=== PATIENT | male | born 1945 | race Caucasian/White ===

== ENCOUNTER 2016-07-02 07:20 | Emergency (ER) | payer MEDICARE, OTHER ==
[2016-07-02 07:05] LABS: BASOPHILS 0.4 %; BASOPHILS ABSOLUTE 0.05 10/3/uL (0.0-0.16); EOSINOPHILS 2.2 %; EOSINOPHILS ABSOLUTE 0.31 10/3/uL (0.0-0.53); HEMATOCRIT 41.9 % (40.0-51.0); HEMOGLOBIN 14.6 g/dL (13.6-17.8); IMMATURE GRANULOCYTES 0.3 %; IMMATURE GRANULOCYTES ABSOLUTE 0.04 10/3/uL (0.0-0.11); LYMPHOCYTES 9.1 %; LYMPHOCYTES ABSOLUTE 1.29 10/3/uL (0.67-4.30); MANUAL DIFF NO %; MEAN CORPUS HGB CONC 34.8 g/dL (32.0-36.0); MEAN CORPUSCULAR HEMOGLOB 32.2 pg (26.0-34.0); MEAN CORPUSCULAR VOLUME 92.3 fL (80-100); MEAN PLATELET VOLUME 10.7 fL (9.2-13.0); MONOCYTES 13.1 %; MONOCYTES ABSOLUTE 1.85 10/3/uL (0.21-1.20); NEUTROPHILS 74.9 %; NEUTROPHILS ABSOLUTE 10.57 10/3/uL (2.02-8.40); PLATELET COUNT 122 10/3/uL (150-400); RBC DISTRIBUTION WIDTH 14.2 % (12.0-16.0); RED CELL COUNT 4.54 10/6/uL (4.7-6.1); WHITE BLOOD CELLS 14.1 10/3/uL (4.5-10.5)
[2016-07-02 07:11] LABS: INTERNATIONAL NORMAL RATI 1.3 UNITS (-); PARTIAL THROMBO TIME 31.6 SEC (22.5-37.2); PROTIME (NOT ORD) 15.8 SEC (12.0-14.5)
[~2016-07-02 07:20] MED LIST: AMPI500 PO; ASA5GR PO; ASAB PO; ASABAYER PO; ASCRIPTIN PO; B12100T PO; BACDS PO; BACLOFEN; CALCIUM PO; CALGLUCTAB PO; CALTRA600D PO; DEPO-TESTOS200 MG/M1 IM; DIL2TAB PO; DILAUDID PUMP; DITRO5 PO; EFFIENT10 PO; ELIQUIS 5 MG TAB5 MG PO; FISH OIL1200 MG PO; FISH-EPA1000 MG PO; FLUOROURACIL 5% EX; GGEXPUD PO; INSPRA25 PO; KDUR20 PO; L40 PO; LIPITOR10 PO; LIPITOR20 PO; LIPOTRIAD1 CAP PO; LOP100 PO; LOP25 PO; LOP50 PO; MAGOX4 PO; METAMUCIL CAN7 OZ PO; METANX PO; METPAKSF PO; NEUR100 PO; NUPLAZID 17 MG PO; OCUVITE PO; OS500+D PO; PRILO PO; PRILOSEC OTC20 MG PO; PRIN20 PO; PROMEGA PO; RAN500 PO; ROBITUSSIN PO; SILTUSSIN100 MG/5 M PO; TESTOSTERONE IM; VITAMIN D1000 UNI1 PO; VITAMIN D31000 UNIT PO; VITC500 PO; Z100 PO; ZESTRIL20 MG PO; ZOL100 PO; [UNRECOGNIZED DRUG - CODE] IV; [UNRECOGNIZED DRUG - OTHER]; [UNRECOGNIZED DRUG - OTHER] PO
[2016-07-02 07:25] LABS: A/G RATIO 0.9 (0.7-1.9); ALBUMIN 3.6 G/DL (3.5-5.0); ALKALINE PHOSPHATASE 127 U/L (45-117); BUN (BLOOD UREA NITROGEN) 8 MG/DL (6-23); CALCIUM, SERUM 8.7 MG/DL (8.5-10.4); CHLORIDE, SERUM 101 MMOL/L (96-112); CO2 (CARBON DIOXIDE) 26 MMOL/L (24-34); CREATININE 0.76 MG/DL (0.70-1.30); GFR AFRICAN AMERICAN 106 ML/MIN (>=60); GFR NON AFRICAN AMERICAN 91 ML/MIN (>=60); GLOBULIN 3.8 G/DL (2.5-4.1); GLUCOSE, SERUM 100 MG/DL (60-99); POTASSIUM, SERUM 4.2 MMOL/L (3.5-5.3); SGOT(AST) 36 U/L (5-40); SGPT(ALT) 37 U/L (5-65); SODIUM, SERUM 139 MMOL/L (135-148); TOTAL BILIRUBIN 1.3 MG/DL (0-1.2); TOTAL PROTEIN 7.4 G/DL (6.0-8.5); TROPONIN I <0.02 NG/ML (<0.05)
[2016-07-02 07:26] LABS: LACTATE 1.5 MMOL/L (0.3-2.4)
[2016-07-02 08:39] LABS: ASCORBIC ACID (UR NOT ORDER) NEG (NEG); BILIRUBIN, URINE NEGATIVE (NEG); ER URINALYSIS TAT 0 Hrs 09 Mins; KETONE, URINE NEGATIVE (NEG); LEUKOCYTE ESTERASE(NOT OR NEG (NEG); NITRITE (URINE) NEG (NEG); WBC (NOT ORDERED) (RFLEX) 1 (0-5)
[2016-09-02] MEDS ORDERED: NUPLAZID PO (13:34)
[2016-09-02] MEDS ORDERED: ASA5GR PO (13:38)
[2016-09-02] MEDS ORDERED: FOLIC PO (13:40)
[2016-12-17] MEDS ORDERED: IMOD PO (10:35)
[2016-12-17] MEDS ORDERED: ELIQUIS 5 MG TAB5 MG PO (10:35)
[2016-12-17] MEDS ORDERED: DEPAKUDL PO (10:36)
[2016-12-17] MEDS ORDERED: FOLIC PO (10:36)
[2016-12-17] MEDS ORDERED: L20 PO (10:37)
[2016-12-17] MEDS ORDERED: NUPLAZID 17 MG PO (10:37)
[2016-12-17] MEDS ORDERED: DIL2TAB PO (10:37)
[2016-12-17] MEDS ORDERED: MIRALAX POWDER1 PKT PO (10:37)
[2016-12-17] MEDS ORDERED: KLOR-CON 1010 MEQ PO (10:38)
[2016-12-17] MEDS ORDERED: LOP25 PO (10:38)
[2016-12-17] MEDS ORDERED: METAMUCIL CAN7 OZ PO (10:38)
[2016-12-17] MEDS ORDERED: PRIN5 PO (10:38)
[2016-12-17] MEDS ORDERED: Z100 PO (10:38)
[2016-12-17] MEDS ORDERED: PRILOSEC OTC20 MG PO (10:39)
[2016-12-17] MEDS ORDERED: MULTIVIT/MIN PO (10:39)
[2016-12-17] MEDS ORDERED: ASA5GR PO (10:39)
[2016-12-17] MEDS ORDERED: FENESIN IR400 MG PO (10:39)
[2016-12-17] MEDS ORDERED: ZOL100 PO (10:39)
[2016-12-17] MEDS ORDERED: DILAUDID PAIN PUMP (10:44)
== END 2016-07-02 10:43 | disposition home or self-care (01) ==
LOC: ER 07:20
PROVIDERS: Specialist
DX: K57.32 Diverticulitis of large intestine without perforation or abscess without bleeding (principal); R07.9 Chest pain, unspecified; D72.829 Elevated white blood cell count, unspecified; I10 Essential (primary) hypertension; G20 Parkinson's disease; Z95.5 Presence of coronary angioplasty implant and graft; Z85.828 Personal history of other malignant neoplasm of skin; Z88.1 Allergy status to other antibiotic agents; Z88.5 Allergy status to narcotic agent; Z88.8 Allergy status to other drugs, medicaments and biological substances; Z79.82 Long term (current) use of aspirin; Z79.899 Other long term (current) drug therapy
CPT/HCPCS: 71010; 74176; 80053; 81001; 82962; 83605; 83690; 84484; 85025; 85610; 85730; 93005; 96374; 99285; A9270-GY; J1170; J2405

== ENCOUNTER 2016-07-19 22:43 | Inpatient (IN) | payer MEDICARE, OTHER ==
--- NOTE | ~2016-07-19 | DS ---
Discharge Summary [facility] [address] [place]. [address] NAME: ARNOLDO BUSH : 41 STATUS : DIS IN PAT#: [id number] AGE: 70 ADM/REG DATE : 07/20/16 MR#: [id number] REPORT SERV DATE: 07/28/16 DICTATED BY: VINNY PIMENTEL DATE: 07/25/16 REPORT STATUS : Draft TRANSCRIBED BY: MODL DATE: 07/25/16 ADMISSION DATE: 07/20/2016 DISCHARGE DATE: 07/25/2016 REASON FOR ADMISSION: Recurrent diverticulitis. HISTORY OF PRESENT ILLNESS: Please refer to Dr. Caden Hernandez's history and physical dated 07/20/2016 for complete details regarding the patient's admission. The patient was admitted to the Hospitalist Service for recurrent diverticulitis. HOSPITAL COURSE: The patient had completed an approximately 10-day course of Augmentin and Flagyl prior to admission, presented with left-sided abdominal pain. CT scan of his abdomen and pelvis without contrast in the ER showed persistent acute diverticulitis involving the proximal sigmoid colon and left upper pelvis when compared to July 02, 2016; no associated abscess; 6 cm long segment of diffusely thickened sigmoid colon. The patient was started on IV Zosyn. He has completed approximately 6 days of IV Zosyn. He has reached the point where he has been tolerating a bland diet for several days. His abdominal pain has markedly improved. The patient had a lot of anxiety and concerns regarding development of an abscess. GI medicine had been following along throughout the hospitalization. We repeated a CT scan of his abdomen and pelvis with IV and oral contrast 2 days later which showed inflammatory changes focally in the descending colon consistent with diverticulitis, but the images have improved over the past several days. There was no abscess or perforation. Even after this CAT scan, the patient continued to complain of worsening abdominal pain. Although he did not have any physical evidence of worsening pain, every time during my physical exam, his abdominal tenderness would be less severe, and he was also tolerating a diet, and he did not appear to be in any pain whatsoever. On , I had offered to send him home or to monitor for one more day with IV antibiotics. The and the patient did not know what to do, so I just decided for them to monitor him for an extra day in the hospital with IV Zosyn, and on the day of discharge, the patient states that he was feeling better. His had some concerns about him going home; however, I had no reason to continue to keep him in the hospital as he has been afebrile without any leukocytosis. He was tolerating a bland diet with no nausea and no vomiting, and after I spent 30 minutes on the day of discharge, I went back into the room, the patient was sound asleep in a chair. Again, in the past 5 to 6 days, he has not exhibited any signs of abdominal pain, leading to the point of continuing IV antibiotics. The patient does have a lot of anxiety which then gets worse as his does not know how to handle his anxiety at times. His was requesting me to start him on anxiety medications. He is already taking Zoloft which has been supervised under Dr. Guillaume, and I expressed concern starting him on a different anti- anxiety medication. He carries a questionable allergy to Levaquin. We had discussed switching him over to Levaquin and Flagyl from Zosyn to see if he would be able to tolerate that; however, pharmacy had called saying that there was a significant interaction with Levaquin and of his Parkinson's medications, and therefore, we decided to keep the patient on Zosyn. The patient does have a history of having some allergic issues, and so I did not want to risk anything. The patient has certainly reached maximal hospitalization. GI Medicine had signed off 2 to 3 days ago, recommended doing an outpatient colonoscopy in 6 weeks. We have arranged home health to help monitor his situation and to provide some Discharge Summary [address] [address] NAME: ARNOLDO BUSH : 41 STATUS : DIS IN PAT#: [id number] AGE: 70 ADM/REG DATE : 07/20/16 MR#: [id number] REPORT SERV DATE: 07/28/16 DICTATED BY: VINNY PIMENTEL DATE: 07/25/16 REPORT STATUS : Draft TRANSCRIBED BY: MODKelsey DATE: 07/25/16 relief to his anxiety. The patient has reached maximal hospitalization and will be discharged today in a stable condition. DISCHARGE DIAGNOSES: 1. Acute diverticulitis. 2. Worsening progressive Parkinson disease. 3. History of a pulmonary embolus/deep vein thrombosis, on Eliquis. 4. Chronic systolic heart failure that is compensated. 5. Chronic pain, dependent on intrathecal Dilaudid pump along with oral Dilaudid for breakthrough. 6. Hypertension. 7. History of thoracic aneurysm. 8. Obstructive sleep apnea, not on CPAP. 9. Multivessel coronary artery disease. 10.History of partial colectomy secondary to diverticulitis. PROCEDURES: 1. CT scan of the abdomen and pelvis without contrast. 2. CT scan of the abdomen and pelvis with IV and oral contrast. CONSULTATION: GI Medicine. DISCHARGE MEDICATIONS: Allopurinol 100 mg every evening; Eliquis 5 mg twice a day; aspirin 325 mg every morning; Metamucil daily; Zoloft 100 mg at bedtime; lisinopril 2.5 mg at bedtime; Robitussin p.r.n.; Dilaudid 2 mg every 4 hours p.r.n. breakthrough pain; intrathecal Dilaudid pump; Lopressor 25 mg twice a day; Prilosec 20 mg p.r.n.; K-Dur 10 mEq daily; vitamin C daily; Lasix 20 mg p.r.n. swelling; Augmentin 875 mg twice a day for 4 more days. This is Vinny Pimentel, spending over 30 minutes on discharge planning and coordination of care on Mr. Bush, and answering multiple questions and concerns for the patient and his . LUCY/LAUREN Vinny Pimentel MD / [id number] CC: MD Barrie Sanchez M.D. Alexander Stratienko, M.D. David Rankine, M.D. Freddy Hurt MD
--- NOTE | ~2016-07-19 | HP ---
History And Physical [place] [id number] [place]. [address] NAME: ARNOLDO LEONARDO : 41 STATUS : ADM IN [facility]#: [id number] AGE: 70 ADM/REG DATE : 07/20/16 MR#: [id number] REPORT SERV DATE: 07/20/16 DICTATED BY: NOLBERTO GOODMAN DATE: 07/20/16 REPORT STATUS : Draft TRANSCRIBED BY: MODKelsey DATE: 07/20/16 DATE OF ADMISSION: 07/20/2016 CHIEF COMPLAINT: A 70-year-old male presenting with recurrent diverticulitis. HISTORY OF PRESENT ILLNESS: The patient's history was obtained through careful interview with the patient and , coupled with review of [facility] and [facility] medical records. The patient had developed abdominal pain on 07/01/2016, by the next day he had been to the emergency department, had a scan that confirm recurrence of diverticulitis and was placed on outpatient Augmentin and Flagyl. He completed a 10-day course of these medications with improvement in his symptoms. But over last 24 hours the patient has had recurrence of his abdominal pain and a CT scan here that shows persistent recurrent diverticulitis. He describes left lower quadrant abdominal discomfort, an aching quality. He describes a "lump" in his left lower quadrant, a 7 to 8/10 severity. He had some nausea, but no vomiting. No diarrhea. No fevers or chills. No bright red blood per rectum. Good appetite. He has had issues with volume overload recently, he takes p.r.n. Lasix because of this. Today, he felt slightly more short of breath than usual with his abdominal pain. He also has chronic intermittent chest discomfort, but he had a negative catheterization of the heart in March 2015. Negative cardiac stress test in June [address] Torres. The patient recently was started on new cardiac medications including lisinopril daily and metoprolol, but the patient does have a history of a borderline low blood pressure with a previous systolic blood pressure in the 90s, at baseline at times. REVIEW OF SYSTEMS: Otherwise, a 14-point review of systems was obtained and was negative. PAST MEDICAL HISTORY: 1. Parkinson's disease with progressive dementia and disability. 2. Coronary artery disease, status post stent placement in 2010, negative catheterization of the heart in March 2015, and negative cardiac stress test in June [address] Lloyd Torres. 3. DVT and pulmonary embolism. Previously a left subclavian vein occlusion, on chronic Eliquis. 4. Obstructive sleep apnea, but not on CPAP. 5. Elevated cholesterol. 6. Pneumonia. History And Physical [place] [address] [place]. [address] NAME: ARNOLDO LEONARDO : 41 STATUS : ADM IN [facility]#: [id number] AGE: 70 ADM/REG DATE : 07/20/16 MR#: [id number] REPORT SERV DATE: 07/20/16 DICTATED BY: NOLBERTO GOODMAN DATE: 07/20/16 REPORT STATUS : Draft TRANSCRIBED BY: LAUREN DATE: 07/20/16 7. Hypertension. 8. Diverticulitis with a previous partial colectomy. 9. Gastroesophageal reflux disorder. 10.Chronic back pain with chronic pain management and a history of a pain pump. 11.Depression. 12.Chronic thoracic aortic aneurysm 3.8 to 4 cm, under observation. 13.Detached retina with optic nerve atrophy. 14.Peptic ulcer disease. 15.History of WPW. 16.Benign prostatic hypertrophy. 17.Nephrolithiasis. 18.Granulomatous lung disease. 19.Gout. 20.TMJ. 21.Systolic congestive heart failure, reported ejection fraction of 40% recently. PAST SURGICAL HISTORY: 1. Pain pump placement in his right abdominal wall. 2. Cervical spine surgery. 3. Partial colectomy for diverticulitis. 4. Bilateral rotator cuff repair. 5. Skin cancer removal. 6. Lipoma removal. 7. Appendectomy. 8. Carpal tunnel release. ALLERGIES: TO CEPHALOSPORINS, LEVAQUIN, MORPHINE, NEURONTIN, LIPITOR, AND NEUPRO. SOCIAL HISTORY: He has never been a smoker. Does not drink alcohol. He and his , both have been 55 years in September. He is a retired SPEECH PATHOLOGIST. They live in [place], [place]. He has two children. One of his children lives in [place] and all of their four grandchildren and five great grandchildren all live in [place]. FAMILY HISTORY: Diabetes. Mother and father with heart disease. Mother with Alzheimer's dementia. CURRENT MEDICATIONS: 1. Nuplazid, this is some kind of Parkinson's medication that he takes daily. 2. Eliquis 5 mg p.o. b.i.d. 3. Metoprolol 25 mg p.o. b.i.d. 4. Aspirin 325 mg daily. 5. Calcium. 6. Lasix 20 mg as needed. 7. Vitamin C. 8. Folic acid. 9. Allopurinol 100 mg p.o. daily. 10.Zoloft 50 mg p.o. daily. History And Physical [address] [address] NAME: ARNOLDO LEONARDO : 41 STATUS : ADM IN [facility]#: [id number] AGE: 70 ADM/REG DATE : 07/20/16 MR#: [id number] REPORT SERV DATE: 07/20/16 DICTATED BY: NOLBERTO GOODMAN DATE: 07/20/16 REPORT STATUS : Draft TRANSCRIBED BY: LAUREN DATE: 07/20/16 11.Lisinopril 2.5 mg p.o. daily. 12.Lipitor 20 mg p.o. daily. 13.Hydromorphone pain pump. 14.Metamucil as needed. 15.Guaifenesin as needed. 16.Neurontin 100 mg at bedtime. PHYSICAL EXAMINATION: VITAL SIGNS: Temperature 99.8, pulse 65, blood pressure as low as 97/50, respiratory rate 18, and O2 saturation 95% on room air. GENERAL: A pleasant, cooperative male, in no significant distress at this time. HEENT: Pupils are equal, round, and reactive to light. No conjunctival pallor. No scleral icterus. Nares are patent. Oropharynx is clear of obstruction. Moist mucous membranes. NECK: Trachea midline. No thyromegaly. LYMPH: No cervical lymphadenopathy. No supraclavicular lymphadenopathy. RESPIRATORY: Clear to auscultation at bases. No wheezes, rales, or rhonchi. Normal respiratory effort. CARDIOVASCULAR: Regular rate and rhythm. No murmurs, rubs, or gallops. No extremity edema is appreciated. ABDOMEN: Some significant left lower quadrant abdominal pain with mild guarding, but no rebound. No mass is palpable. A nondistended abdomen with active bowel sounds. No hepatosplenomegaly. DERMATOLOGICAL: Warm and dry extremities. No pallor. No cyanosis. PSYCHIATRIC: A normal affect. A very pleasant mood. The patient is alert and appropriate. He is oriented to location. He has difficulty with orientation to time, and details of his recent history. LABORATORY DATA: White blood cell count 14, hemoglobin 13, hematocrit 39, and platelets 136. Sodium 139, potassium 4.1, chloride 103, bicarb 25, BUN 9, creatinine 0.58, and glucose 116. Urinalysis negative for infection. Lactic acid 1.9. INR 1.4. Procalcitonin negative. STUDIES: 1. CT scan of the abdomen shows acute diverticulitis. 2. EKG by my own evaluation shows sinus rhythm, no major abnormalities. ASSESSMENT AND PLAN: 1. Acute diverticulitis "failed" outpatient Augmentin and Flagyl. The patient does have a cephalosporin and Levaquin allergy. We will place on IV Zosyn. Family has also requested to be established with a GI doctor, so we will consult Dr. Small. The patient has had a history of severe diverticulitis previously requiring partial colectomy. 2. Worsening progressive Parkinson's disease. 3. History of pulmonary embolism and deep venous thrombosis, on Eliquis. Possible Factor V Leiden. History And Physical [address] [address] NAME: ARNOLDO LEONARDO : 41 STATUS : ADM IN [facility]#: [id number] AGE: 70 ADM/REG DATE : 07/20/16 MR#: [id number] REPORT SERV DATE: 07/20/16 DICTATED BY: NOLBERTO GOODMAN DATE: 07/20/16 REPORT STATUS : Draft TRANSCRIBED BY: MODL DATE: 07/20/16 4. Chronic systolic congestive heart failure. Ejection fraction 40%. Holding beta- amilcar and GLORY inhibitor secondary to hypotension. Monitor volume status closely. 5. Hypertension, chronically intermittent low blood pressure. Recently started on lisinopril and beta-amilcar. We will hold these medications and try mild IV fluids and IV albumin. KPL/MODL Nolberto Goodman M.D. / [id number] CC: Mari Link M.D.
--- NOTE | ~2016-07-19 | CN ---
Consultation Report [facility] [address] [place]. [address] NAME: ARNOLDO BUSH : 41 STATUS : ADM IN PAT#: [id number] AGE: 70 ADM/REG DATE : 07/20/16 MR#: [id number] REPORT SERV DATE: 07/20/16 DICTATED BY: NIKHIL PATEL DATE: 07/20/16 REPORT STATUS : Draft TRANSCRIBED BY: MODKelsey DATE: 07/20/16 GI CONSULTATION DATE OF CONSULTATION: 07/20/2016 REFERRING PHYSICIAN: Jade Caraballo M.D. REASON FOR CONSULTATION: Acute diverticulitis. HISTORY OF PRESENT ILLNESS: Mr. Bush is a 70-year-old gentleman, with a history of diverticulosis in the past and about maybe 15 years or so ago for recurrent diverticulitis, had portion of his colon resected, and has since followed up with Dr. Gamez, who probably did the last colonoscopy on him about five years ago. According to the family nothing was found other than residual diverticulosis. For the first time in many years in the month of June this year, he had an episode of lower abdominal pain and discomfort, and had a CT scan done on 07/02/2016, which showed focal acute diverticulitis in the descending colon at the junction with the sigmoid, without perforation or abscess. He was discharged on oral antibiotics and started feeling better. He then had some more pain and went to the emergency room, this time at [facility], where another CT was done and was told that there was no residual diverticulitis (this is according to the ). Last night, the pain got worse and that is why they came in here and another CT was done again without contrast which showed persistent acute diverticulitis pattern involving the proximal sigmoid colon in the left upper pelvis when compared to the in 07/02/2016 CT. No associated abscess. 6 cm long segment of diffusely thickened sigmoid colon. A colonoscopy has been recommended. There are stable postsurgical changes in the area of the sigmoid from prior surgery, [id number] hiatal hernia. LABORATORY DATA: Showed a white count of 9.4, hemoglobin and hematocrit 11.8 and 35.5, with 99,000 platelet count. Chemistry panel is normal except for a CO2 of 23. PAST MEDICAL HISTORY: 1. History of recurrent diverticulitis, in the past has had a resection. 2. 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 Mushtaq Gaspar, and he had developed a clot in his brachial artery, and he has been on Eliquis. 3. History of coronary artery disease with an ejection fraction of 50% on echo. He has had a left heart catheterization, which showed medium [id number]-[id number]-[id number] length vessel without stenosis, normal LVEF at that time, this was in 03/2015. 4. History of Parkinson's with some dementia. 5. History of constipation. HOME MEDICATIONS: Dilaudid, Lopressor, Prilosec, potassium, Metamucil, Zoloft, calcium, Zyloprim, Eliquis, vitamin C, Cecilio aspirin, Lasix, and Robitussin. Consultation Report [address] [place]. [address] NAME: ARNOLDO BUSH : 41 STATUS : ADM IN [facility]#: [id number] AGE: 70 ADM/REG DATE : 07/20/16 MR#: [id number] REPORT SERV DATE: 07/20/16 DICTATED BY: NIKHIL PATEL DATE: 07/20/16 REPORT STATUS : Draft TRANSCRIBED BY: LAUREN DATE: 07/20/16 PAST SURGICAL HISTORY: 1. Colon resection. 2. Appendectomy. 3. Back surgery. REVIEW OF SYSTEMS: CONSTITUTIONAL: General health to be rbwq-xi-zfsk. No fever, chills, weight loss, anorexia, weakness, dizziness, itching, night sweats, or night fevers. HEENT: Vision is diminished. Hearing is diminished. SKIN: History of basal cell cancer. GASTROINTESTINAL: As mentioned above. CARDIOVASCULAR: History of brachial artery clot, on Eliquis, and decreased ejection fraction. PULMONARY: Normal. GENITOURINARY: Some prostate problems for which he has had a TURP. NEUROLOGICAL: Dementia. MUSCULOSKELETAL: Back problems. PHYSICAL EXAMINATION: GENERAL: He is a fully alert and oriented gentleman, in no acute distress. VITAL SIGNS: With stable vital signs. NECK: Supple. LUNGS: Reveal good air entry bilaterally. No rales or rhonchi. CVS: Normal. ABDOMEN: Soft, nondistended, and nontender. No mass, guarding, rigidity, or rebound. Liver and spleen are not palpable. Clinically no ascites. EXTREMITIES: Without edema. LABORATORY DATA: His labs as mentioned. IMPRESSION: 1. Recurrent acute diverticulitis. 2. Multiple other problems as mentioned above. RECOMMENDATIONS: 1. Continue IV antibiotics. The patient is presently on Zosyn. 2. When stable can be discharged AND I will follow up as an outpatient. GARETH/LAUREN Barrie Patel M.D. Consultation Report [address] [place]. [address] NAME: ARNOLDO BUSH : 41 STATUS : ADM IN [facility]#: [id number] AGE: 70 ADM/REG DATE : 07/20/16 MR#: [id number] REPORT SERV DATE: 07/20/16 DICTATED BY: NIKHIL PATEL DATE: 07/20/16 REPORT STATUS : Draft TRANSCRIBED BY: LAUREN DATE: 07/20/16 / [id number] CC: Jade Caraballo M.D.
[2016-07-19 22:46] LABS: WBC (NOT ORDERED) (RFLEX) 0 (0-5)
[2016-07-19 22:53] LABS: ASCORBIC ACID (UR NOT ORDER) NEG (NEG); BILIRUBIN, URINE NEGATIVE (NEG); ER URINALYSIS TAT 0 Hrs 08 Mins; KETONE, URINE NEGATIVE (NEG); LEUKOCYTE ESTERASE(NOT OR NEG (NEG); NITRITE (URINE) NEG (NEG)
[2016-07-19 23:21] LABS: BASOPHILS 0.2 %; BASOPHILS ABSOLUTE 0.03 10/3/uL (0.0-0.16); EOSINOPHILS 1.2 %; EOSINOPHILS ABSOLUTE 0.17 10/3/uL (0.0-0.53); HEMATOCRIT 39.7 % (40.0-51.0); HEMOGLOBIN 13.5 g/dL (13.6-17.8); IMMATURE GRANULOCYTES 0.3 %; IMMATURE GRANULOCYTES ABSOLUTE 0.04 10/3/uL (0.0-0.11); LYMPHOCYTES ABSOLUTE 0.97 10/3/uL (0.67-4.30); MEAN CORPUSCULAR HEMOGLOB 31.8 pg (26.0-34.0); MEAN CORPUSCULAR VOLUME 93.4 fL (80-100); MEAN PLATELET VOLUME 10.3 fL (9.2-13.0); MONOCYTES 15.1 %; NEUTROPHILS 76.2 %; NEUTROPHILS ABSOLUTE 10.57 10/3/uL (2.02-8.40); PLATELET COUNT 136 10/3/uL (150-400); RBC DISTRIBUTION WIDTH 14.2 % (12.0-16.0); RED CELL COUNT 4.25 10/6/uL (4.7-6.1); WHITE BLOOD CELLS 13.9 10/3/uL (4.5-10.5)
[2016-07-19 23:22] LABS: MANUAL DIFF NO %
[2016-07-19 23:29] LABS: INTERNATIONAL NORMAL RATI 1.4 UNITS (-); PROTIME (NOT ORD) 16.7 SEC (12.0-14.5)
[2016-07-19 23:37] LABS: A/G RATIO 0.9 (0.7-1.9); ALBUMIN 3.3 G/DL (3.5-5.0); BUN (BLOOD UREA NITROGEN) 9 MG/DL (6-23); CALCIUM, SERUM 8.4 MG/DL (8.5-10.4); CHLORIDE, SERUM 103 MMOL/L (96-112); CO2 (CARBON DIOXIDE) 25 MMOL/L (24-34); CREATININE 0.58 MG/DL (0.70-1.30); DIRECT BILIRUBIN 0.2 MG/DL (0.0-0.4); GFR AFRICAN AMERICAN 118 ML/MIN (>=60); GFR NON AFRICAN AMERICAN 102 ML/MIN (>=60); GLOBULIN 3.7 G/DL (2.5-4.1); GLUCOSE, SERUM 116 MG/DL (60-99); POTASSIUM, SERUM 4.1 MMOL/L (3.5-5.3); SGOT(AST) 25 U/L (5-40); SGPT(ALT) 30 U/L (5-65); SODIUM, SERUM 139 MMOL/L (135-148)
[2016-07-19 23:38] LABS: ALKALINE PHOSPHATASE 107 U/L (45-117); INDIRECT BILIRUBIN(NOT ORDER) 0.5 MG/DL (0.1-0.9); LACTATE 1.9 MMOL/L (0.3-2.4); TOTAL BILIRUBIN 0.7 MG/DL (0-1.2)
[2016-07-20 00:27] LABS: PROCALCITONIN <0.05 ng/mL (<0.5)
[2016-07-20] MEDS ORDERED: L20 PO (02:08)
[2016-07-20 13:04] LABS: BASOPHILS 0.1 %; BASOPHILS ABSOLUTE 0.01 10/3/uL (0.0-0.16); EOSINOPHILS 1.3 %; EOSINOPHILS ABSOLUTE 0.12 10/3/uL (0.0-0.53); HEMOGLOBIN 11.8 g/dL (13.6-17.8); IMMATURE GRANULOCYTES 0.3 %; IMMATURE GRANULOCYTES ABSOLUTE 0.03 10/3/uL (0.0-0.11); LYMPHOCYTES 12.8 %; MEAN CORPUS HGB CONC 33.2 g/dL (32.0-36.0); MEAN CORPUSCULAR HEMOGLOB 31.9 pg (26.0-34.0); MEAN CORPUSCULAR VOLUME 95.9 fL (80-100); MEAN PLATELET VOLUME 11.5 fL (9.2-13.0); MONOCYTES 9.5 %; MONOCYTES ABSOLUTE 0.89 10/3/uL (0.21-1.20); NEUTROPHILS ABSOLUTE 7.12 10/3/uL (2.02-8.40); PLATELET COUNT 99 10/3/uL (150-400); RBC DISTRIBUTION WIDTH 14.5 % (12.0-16.0); WHITE BLOOD CELLS 9.4 10/3/uL (4.5-10.5)
[2016-07-20 13:10] LABS: HEMATOCRIT 35.5 % (40.0-51.0)
[2016-07-20 13:11] LABS: MANUAL DIFF NO %; PARTIAL THROMBO TIME 26.9 SEC (22.5-37.2)
[2016-07-20 13:12] LABS: INTERNATIONAL NORMAL RATI 1.5 UNITS (-); PROTIME (NOT ORD) 17.9 SEC (12.0-14.5)
[2016-07-20 13:25] LABS: A/G RATIO 1.2 (0.7-1.9); ALBUMIN 3.8 G/DL (3.5-5.0); BUN (BLOOD UREA NITROGEN) 9 MG/DL (6-23); CALCIUM, SERUM 8.6 MG/DL (8.5-10.4); CHLORIDE, SERUM 106 MMOL/L (96-112); CO2 (CARBON DIOXIDE) 23 MMOL/L (24-34); CREATININE 0.66 MG/DL (0.70-1.30); GFR AFRICAN AMERICAN 112 ML/MIN (>=60); GFR NON AFRICAN AMERICAN 97 ML/MIN (>=60); GLOBULIN 3.2 G/DL (2.5-4.1); GLUCOSE, SERUM 113 MG/DL (60-99); POTASSIUM, SERUM 3.9 MMOL/L (3.5-5.3); SGPT(ALT) 24 U/L (5-65); SODIUM, SERUM 141 MMOL/L (135-148); TOTAL BILIRUBIN 1.1 MG/DL (0-1.2); ULTRASENSITIVE TSH 0.901 MCIU/ML (0.358-3.740)
[2016-07-20 13:26] LABS: ALKALINE PHOSPHATASE 84 U/L (45-117); SGOT(AST) 25 U/L (5-40)
[2016-07-21 06:44] LABS: BASOPHILS 0.4 %; BASOPHILS ABSOLUTE 0.03 10/3/uL (0.0-0.16); EOSINOPHILS 4.1 %; HEMATOCRIT 36.2 % (40.0-51.0); IMMATURE GRANULOCYTES 0.3 %; IMMATURE GRANULOCYTES ABSOLUTE 0.02 10/3/uL (0.0-0.11); LYMPHOCYTES 15.5 %; LYMPHOCYTES ABSOLUTE 1.13 10/3/uL (0.67-4.30); MEAN CORPUS HGB CONC 33.1 g/dL (32.0-36.0); MEAN CORPUSCULAR HEMOGLOB 31.7 pg (26.0-34.0); MEAN CORPUSCULAR VOLUME 95.5 fL (80-100); MONOCYTES 14.6 %; MONOCYTES ABSOLUTE 1.07 10/3/uL (0.21-1.20); NEUTROPHILS 65.1 %; NEUTROPHILS ABSOLUTE 4.76 10/3/uL (2.02-8.40); PLATELET COUNT 102 10/3/uL (150-400); RBC DISTRIBUTION WIDTH 14.6 % (12.0-16.0); RED CELL COUNT 3.79 10/6/uL (4.7-6.1); WHITE BLOOD CELLS 7.3 10/3/uL (4.5-10.5)
[2016-07-21 06:47] LABS: MANUAL DIFF NO %
[2016-07-21 07:02] LABS: A/G RATIO 1.2 (0.7-1.9); ALBUMIN 3.6 G/DL (3.5-5.0); ALKALINE PHOSPHATASE 80 U/L (45-117); BUN (BLOOD UREA NITROGEN) 7 MG/DL (6-23); CALCIUM, SERUM 8.7 MG/DL (8.5-10.4); CHLORIDE, SERUM 109 MMOL/L (96-112); CO2 (CARBON DIOXIDE) 26 MMOL/L (24-34); CREATININE 0.64 MG/DL (0.70-1.30); GFR AFRICAN AMERICAN 113 ML/MIN (>=60); GFR NON AFRICAN AMERICAN 98 ML/MIN (>=60); GLOBULIN 2.9 G/DL (2.5-4.1); GLUCOSE, SERUM 90 MG/DL (60-99); POTASSIUM, SERUM 3.8 MMOL/L (3.5-5.3); SGOT(AST) 17 U/L (5-40); SGPT(ALT) 22 U/L (5-65); SODIUM, SERUM 144 MMOL/L (135-148); TOTAL PROTEIN 6.5 G/DL (6.0-8.5)
[2016-07-22 06:22] LABS: BASOPHILS 0.6 %; BASOPHILS ABSOLUTE 0.04 10/3/uL (0.0-0.16); EOSINOPHILS 4.9 %; EOSINOPHILS ABSOLUTE 0.35 10/3/uL (0.0-0.53); HEMATOCRIT 36.6 % (40.0-51.0); HEMOGLOBIN 12.4 g/dL (13.6-17.8); IMMATURE GRANULOCYTES 0.3 %; IMMATURE GRANULOCYTES ABSOLUTE 0.02 10/3/uL (0.0-0.11); LYMPHOCYTES 15.1 %; LYMPHOCYTES ABSOLUTE 1.08 10/3/uL (0.67-4.30); MEAN CORPUS HGB CONC 33.9 g/dL (32.0-36.0); MEAN CORPUSCULAR HEMOGLOB 31.9 pg (26.0-34.0); MEAN CORPUSCULAR VOLUME 94.1 fL (80-100); MEAN PLATELET VOLUME 10.6 fL (9.2-13.0); MONOCYTES 13.7 %; MONOCYTES ABSOLUTE 0.98 10/3/uL (0.21-1.20); NEUTROPHILS 65.4 %; NEUTROPHILS ABSOLUTE 4.66 10/3/uL (2.02-8.40); PLATELET COUNT 113 10/3/uL (150-400); RBC DISTRIBUTION WIDTH 14.2 % (12.0-16.0); RED CELL COUNT 3.89 10/6/uL (4.7-6.1); WHITE BLOOD CELLS 7.1 10/3/uL (4.5-10.5)
[2016-07-22 06:23] LABS: MANUAL DIFF NO %
[2016-07-22 06:34] LABS: BUN (BLOOD UREA NITROGEN) 7 MG/DL (6-23); CALCIUM, SERUM 8.6 MG/DL (8.5-10.4); CHLORIDE, SERUM 107 MMOL/L (96-112); CO2 (CARBON DIOXIDE) 27 MMOL/L (24-34); CREATININE 0.66 MG/DL (0.70-1.30); GFR AFRICAN AMERICAN 112 ML/MIN (>=60); GFR NON AFRICAN AMERICAN 97 ML/MIN (>=60); GLUCOSE, SERUM 90 MG/DL (60-99); POTASSIUM, SERUM 3.8 MMOL/L (3.5-5.3); SODIUM, SERUM 143 MMOL/L (135-148)
[2016-07-22 12:42] LABS: PROCALCITONIN <0.05 ng/mL (<0.5)
[2016-07-23 05:32] LABS: BASOPHILS 0.5 %; BASOPHILS ABSOLUTE 0.03 10/3/uL (0.0-0.16); EOSINOPHILS 6.8 %; HEMOGLOBIN 12.7 g/dL (13.6-17.8); IMMATURE GRANULOCYTES 0.3 %; IMMATURE GRANULOCYTES ABSOLUTE 0.02 10/3/uL (0.0-0.11); LYMPHOCYTES 17.6 %; LYMPHOCYTES ABSOLUTE 1.04 10/3/uL (0.67-4.30); MEAN CORPUS HGB CONC 33.4 g/dL (32.0-36.0); MEAN CORPUSCULAR HEMOGLOB 31.8 pg (26.0-34.0); MEAN PLATELET VOLUME 10.8 fL (9.2-13.0); MONOCYTES 12.7 %; MONOCYTES ABSOLUTE 0.75 10/3/uL (0.21-1.20); NEUTROPHILS 62.1 %; NEUTROPHILS ABSOLUTE 3.68 10/3/uL (2.02-8.40); PLATELET COUNT 138 10/3/uL (150-400); RBC DISTRIBUTION WIDTH 14.2 % (12.0-16.0); WHITE BLOOD CELLS 5.9 10/3/uL (4.5-10.5)
[2016-07-23 05:35] LABS: MANUAL DIFF NO %
[2016-07-23 05:48] LABS: BUN (BLOOD UREA NITROGEN) 7 MG/DL (6-23); CALCIUM, SERUM 8.9 MG/DL (8.5-10.4); CHLORIDE, SERUM 105 MMOL/L (96-112); CO2 (CARBON DIOXIDE) 26 MMOL/L (24-34); CREATININE 0.68 MG/DL (0.70-1.30); GFR AFRICAN AMERICAN 111 ML/MIN (>=60); GFR NON AFRICAN AMERICAN 95 ML/MIN (>=60); GLUCOSE, SERUM 90 MG/DL (60-99); POTASSIUM, SERUM 4.1 MMOL/L (3.5-5.3); SODIUM, SERUM 142 MMOL/L (135-148)
[2016-07-25] MEDS ORDERED: AUG875 PO (10:53)
[2016-07-25] MEDS ORDERED: PRIN5 PO (11:06)
[2016-09-02] MEDS ORDERED: NUPLAZID PO (13:34)
[2016-09-02] MEDS ORDERED: ASA5GR PO (13:38)
[2016-09-02] MEDS ORDERED: FOLIC PO (13:40)
[2016-12-17] MEDS ORDERED: IMOD PO (10:35)
[2016-12-17] MEDS ORDERED: ELIQUIS 5 MG TAB5 MG PO (10:35)
[2016-12-17] MEDS ORDERED: FOLIC PO (10:36)
[2016-12-17] MEDS ORDERED: DEPAKUDL PO (10:36)
[2016-12-17] MEDS ORDERED: L20 PO (10:37)
[2016-12-17] MEDS ORDERED: MIRALAX POWDER1 PKT PO (10:37)
[2016-12-17] MEDS ORDERED: DIL2TAB PO (10:37)
[2016-12-17] MEDS ORDERED: NUPLAZID 17 MG PO (10:37)
[2016-12-17] MEDS ORDERED: METAMUCIL CAN7 OZ PO (10:38)
[2016-12-17] MEDS ORDERED: KLOR-CON 1010 MEQ PO (10:38)
[2016-12-17] MEDS ORDERED: PRIN5 PO (10:38)
[2016-12-17] MEDS ORDERED: LOP25 PO (10:38)
[2016-12-17] MEDS ORDERED: Z100 PO (10:38)
[2016-12-17] MEDS ORDERED: ASA5GR PO (10:39)
[2016-12-17] MEDS ORDERED: ZOL100 PO (10:39)
[2016-12-17] MEDS ORDERED: FENESIN IR400 MG PO (10:39)
[2016-12-17] MEDS ORDERED: PRILOSEC OTC20 MG PO (10:39)
[2016-12-17] MEDS ORDERED: MULTIVIT/MIN PO (10:39)
[2016-12-17] MEDS ORDERED: DILAUDID PAIN PUMP (10:44)
== END 2016-07-25 13:17 | disposition home health service (06) | DRG 392 ==
LOC: ER 22:43 → 5SO 07-20 01:30
PROVIDERS: Hospitalist; Nurse Practitioner; Nurse Practitioner Adult Health; Nurse Practitioner Family
DX: K57.32 Diverticulitis of large intestine without perforation or abscess without bleeding (principal); I95.89 Other hypotension; G20 Parkinson's disease; I11.0 Hypertensive heart disease with heart failure; I50.22 Chronic systolic (congestive) heart failure; F11.20 Opioid dependence, uncomplicated; F02.80 Dementia in other diseases classified elsewhere, unspecified severity, without behavioral disturbance, psychotic disturbance, mood disturbance, and anxiety; I25.10 Atherosclerotic heart disease of native coronary artery without angina pectoris; G47.33 Obstructive sleep apnea (adult) (pediatric); E78.00 Pure hypercholesterolemia, unspecified; K21.9 Gastro-esophageal reflux disease without esophagitis; G89.29 Other chronic pain; F32.9 Major depressive disorder, single episode, unspecified; N40.0 Benign prostatic hyperplasia without lower urinary tract symptoms; I45.6 Pre-excitation syndrome; E66.9 Obesity, unspecified; I71.2 Thoracic aortic aneurysm, without rupture; Z68.31 Body mass index [BMI] 31.0-31.9, adult; Z86.718 Personal history of other venous thrombosis and embolism; Z86.711 Personal history of pulmonary embolism; Z79.899 Other long term (current) drug therapy; Z95.5 Presence of coronary angioplasty implant and graft; Z79.02 Long term (current) use of antithrombotics/antiplatelets; Z88.5 Allergy status to narcotic agent; Z88.1 Allergy status to other antibiotic agents; Z88.8 Allergy status to other drugs, medicaments and biological substances; Z83.3 Family history of diabetes mellitus; Z82.49 Family history of ischemic heart disease and other diseases of the circulatory system; Z79.82 Long term (current) use of aspirin; Z90.49 Acquired absence of other specified parts of digestive tract; Z98.890 Other specified postprocedural states
CPT/HCPCS: 74176; 74177; 80048; 80053; 81001; 82248; 83605; 83690; 83735; 83880; 84145; 84443; 85025; 85610; 85730; 93005; 96374; 96375; 99285; A9270-GY; J0360; J1170; J2405; J2543; P9047; Q9967

== ENCOUNTER 2016-08-04 19:18 | Emergency (ER) | payer MEDICARE, OTHER ==
[~2016-08-04 19:18] MED LIST changes: +AUG875 PO; +L20 PO; +PRIN5 PO
[2016-08-04 20:08] LABS: BASOPHILS 0.5 %; BASOPHILS ABSOLUTE 0.04 10/3/uL (0.0-0.16); EOSINOPHILS 3.4 %; EOSINOPHILS ABSOLUTE 0.26 10/3/uL (0.0-0.53); ER CBC TAT 0 Hrs 05 Mins; HEMATOCRIT 40.8 % (40.0-51.0); HEMOGLOBIN 13.7 g/dL (13.6-17.8); IMMATURE GRANULOCYTES 0.1 %; IMMATURE GRANULOCYTES ABSOLUTE 0.01 10/3/uL (0.0-0.11); LYMPHOCYTES 23.9 %; LYMPHOCYTES ABSOLUTE 1.83 10/3/uL (0.67-4.30); MEAN CORPUS HGB CONC 33.6 g/dL (32.0-36.0); MEAN CORPUSCULAR HEMOGLOB 31.5 pg (26.0-34.0); MEAN CORPUSCULAR VOLUME 93.8 fL (80-100); MEAN PLATELET VOLUME 11.2 fL (9.2-13.0); MONOCYTES 11.5 %; MONOCYTES ABSOLUTE 0.88 10/3/uL (0.21-1.20); NEUTROPHILS 60.6 %; NEUTROPHILS ABSOLUTE 4.63 10/3/uL (2.02-8.40); PLATELET COUNT 131 10/3/uL (150-400); RED CELL COUNT 4.35 10/6/uL (4.7-6.1); WHITE BLOOD CELLS 7.7 10/3/uL (4.5-10.5)
[2016-08-04 20:11] LABS: MANUAL DIFF NO %
[2016-08-04 20:22] LABS: ALBUMIN 3.8 G/DL (3.5-5.0); BUN (BLOOD UREA NITROGEN) 10 MG/DL (6-23); CALCIUM, SERUM 9.3 MG/DL (8.5-10.4); CHLORIDE, SERUM 103 MMOL/L (96-112); CREATININE 0.69 MG/DL (0.70-1.30); GFR AFRICAN AMERICAN 110 ML/MIN (>=60); GFR NON AFRICAN AMERICAN 95 ML/MIN (>=60); GLUCOSE, SERUM 83 MG/DL (60-99); POTASSIUM, SERUM 4.1 MMOL/L (3.5-5.3); SGOT(AST) 30 U/L (5-40); SGPT(ALT) 32 U/L (5-65); SODIUM, SERUM 139 MMOL/L (135-148); TOTAL PROTEIN 7.4 G/DL (6.0-8.5)
[2016-08-04 20:23] LABS: A/G RATIO 1.1 (0.7-1.9); ALKALINE PHOSPHATASE 101 U/L (45-117); CO2 (CARBON DIOXIDE) 32 MMOL/L (24-34); GLOBULIN 3.6 G/DL (2.5-4.1); TOTAL BILIRUBIN 0.4 MG/DL (0-1.2)
[2016-08-04 20:26] LABS: ASCORBIC ACID (UR NOT ORDER) NEG (NEG); BILIRUBIN, URINE NEGATIVE (NEG); ER URINALYSIS TAT 0 Hrs 20 Mins; KETONE, URINE NEGATIVE (NEG); LEUKOCYTE ESTERASE(NOT OR NEG (NEG); NITRITE (URINE) NEG (NEG); WBC (NOT ORDERED) (RFLEX) < 1 (0-5)
[2016-09-02] MEDS ORDERED: NUPLAZID PO (13:34)
[2016-09-02] MEDS ORDERED: ASA5GR PO (13:38)
[2016-09-02] MEDS ORDERED: FOLIC PO (13:40)
[2016-12-17] MEDS ORDERED: ELIQUIS 5 MG TAB5 MG PO (10:35)
[2016-12-17] MEDS ORDERED: IMOD PO (10:35)
[2016-12-17] MEDS ORDERED: FOLIC PO (10:36)
[2016-12-17] MEDS ORDERED: DEPAKUDL PO (10:36)
[2016-12-17] MEDS ORDERED: DIL2TAB PO (10:37)
[2016-12-17] MEDS ORDERED: L20 PO (10:37)
[2016-12-17] MEDS ORDERED: NUPLAZID 17 MG PO (10:37)
[2016-12-17] MEDS ORDERED: MIRALAX POWDER1 PKT PO (10:37)
[2016-12-17] MEDS ORDERED: Z100 PO (10:38)
[2016-12-17] MEDS ORDERED: LOP25 PO (10:38)
[2016-12-17] MEDS ORDERED: PRIN5 PO (10:38)
[2016-12-17] MEDS ORDERED: METAMUCIL CAN7 OZ PO (10:38)
[2016-12-17] MEDS ORDERED: KLOR-CON 1010 MEQ PO (10:38)
[2016-12-17] MEDS ORDERED: PRILOSEC OTC20 MG PO (10:39)
[2016-12-17] MEDS ORDERED: ASA5GR PO (10:39)
[2016-12-17] MEDS ORDERED: ZOL100 PO (10:39)
[2016-12-17] MEDS ORDERED: MULTIVIT/MIN PO (10:39)
[2016-12-17] MEDS ORDERED: FENESIN IR400 MG PO (10:39)
[2016-12-17] MEDS ORDERED: DILAUDID PAIN PUMP (10:44)
== END 2016-08-05 01:07 | disposition home or self-care (01) ==
LOC: ER 19:18
PROVIDERS: Emergency Medicine
DX: R10.9 Unspecified abdominal pain (principal); G20 Parkinson's disease; K57.92 Diverticulitis of intestine, part unspecified, without perforation or abscess without bleeding; Z88.8 Allergy status to other drugs, medicaments and biological substances; Z88.1 Allergy status to other antibiotic agents; Z79.899 Other long term (current) drug therapy; Z79.82 Long term (current) use of aspirin
CPT/HCPCS: 74176; 80053; 81001; 83690; 85025; 99284

== ENCOUNTER 2016-09-04 09:22 | Day surgery (SDC) | payer MEDICARE, OTHER ==
--- NOTE | ~2016-09-04 | EGD ---
EGD REPORT [facility] [address] [place] [address] NAME: CHARLES BUSH : 41 STATUS : REG [facility]#: [id number] AGE: 71 ADM/REG DATE : 09/04/16 MR#: [id number] REPORT SERV DATE: 09/04/16 DICTATED BY: NIKHIL ANGUIANO DATE: 09/04/16 REPORT STATUS : Draft [facility]ANSCRIBED [facility]: [facility] DATE: 09/04/16 Endoscopy Center Patient Name: Charles Bush. Date of : 1945 Attending MD: ANÍBAL ANGUIANO MD Procedure Date No Time: 09/04/2016 Procedure: Colonoscopy Indications: Abdominal pain in the left lower quadrant, Suspected diverticulitis Referring MD: Freddy Hurt Medicines: See the Anesthesia note for documentation of the administered medications Complications: No immediate complications. Procedure: Pre-Anesthesia Assessment: - ASA Grade Assessment: IV - A patient with severe systemic disease that is a constant threat to life. - Prior to the procedure, a History and Physical was performed, and patient medications and allergies were reviewed. The patient's tolerance of previous anesthesia was also reviewed. The risks and benefits of the procedure and the sedation options and risks were discussed with the patient. All questions were answered, and informed consent was obtained. Prior Anticoagulants: The patient has taken anticoagulant medication, last dose was 2 days prior to procedure. After reviewing the risks and benefits, the patient was deemed in satisfactory condition to undergo the procedure. After I obtained informed consent, the scope was passed under direct vision. Throughout the procedure, the patient's blood pressure, pulse, and oxygen saturations were monitored continuously. The PCF [id number] was introduced through the anus and advanced to the terminal ileum. The ileocecal valve, appendiceal orifice, terminal ileum and rectum were photographed. The entire colon was examined. The colonoscopy was performed without difficulty. The patient tolerated the procedure well. The quality of the bowel preparation was adequate. Findings: The terminal ileum appeared normal. A few medium-mouthed diverticula were found in the entire colon. There was evidence of a prior end-to-end colo-colonic anastomosis at 20 cm proximal to the anus. This was patent. This was characterized by healthy appearing mucosa. This was traversed. Non-bleeding internal hemorrhoids were found during retroflexion and EGD REPORT [address] [address] NAME: CHARLES BUSH : 41 STATUS : REG [facility]#: [id number] AGE: 71 ADM/REG DATE : 09/04/16 MR#: [id number] REPORT SERV DATE: 09/04/16 DICTATED BY: NIKHIL ANGUIANO DATE: 09/04/16 REPORT STATUS : Draft TRANSCRIBED BY: [employer] DATE: 09/04/16 were Grade I (internal hemorrhoids that do not prolapse). Impression: - The examined portion of the ileum was normal. - Diverticulosis in the entire examined colon. - Patent end-to-end colo-colonic anastomosis. - Non-bleeding internal hemorrhoids. Recommendation: - Patient has a contact number available for emergencies. The signs and symptoms of potential delayed complications were discussed with the patient. Return to normal activities tomorrow. Written discharge instructions were provided to the patient. - High fiber diet indefinitely. - Discharge patient to home. - Continue present medications. - Repeat colonoscopy is not recommended for surveillance. - Make sure you restart Eliquis today Procedure Code(s): --- Professional --- 86314, Colonoscopy, flexible, proximal to splenic flexure; diagnostic, with or without collection of specimen(s) by brushing or washing, with or without colon decompression (separate procedure) Diagnosis Code(s): --- Professional --- K64.0, First degree hemorrhoids K57.30, Diverticulosis of large intestine without perforation or abscess without bleeding Z98.0, Intestinal bypass and anastomosis status R10.32, Left lower quadrant pain CPT copyright 2013 [employer]. All rights reserved. The codes documented in this report are preliminary and upon hydraulic plumber helper review may be revised to meet current compliance requirements. ANÍBAL ANGUIANO MD 09/04/2016 1:02 PM This report has been signed electronically. Number of Addenda: 0 Note Initiated On: 09/04/2016 12:34 PM Scope Withdrawal Time 0 hours 6 minutes 7 seconds [id number] [id number]
[~2016-09-04 09:22] MED LIST changes: +FOLIC PO; +NUPLAZID PO
[2016-12-17] MEDS ORDERED: IMOD PO (10:35)
[2016-12-17] MEDS ORDERED: ELIQUIS 5 MG TAB5 MG PO (10:35)
[2016-12-17] MEDS ORDERED: DEPAKUDL PO (10:36)
[2016-12-17] MEDS ORDERED: FOLIC PO (10:36)
[2016-12-17] MEDS ORDERED: DIL2TAB PO (10:37)
[2016-12-17] MEDS ORDERED: MIRALAX POWDER1 PKT PO (10:37)
[2016-12-17] MEDS ORDERED: L20 PO (10:37)
[2016-12-17] MEDS ORDERED: NUPLAZID 17 MG PO (10:37)
[2016-12-17] MEDS ORDERED: METAMUCIL CAN7 OZ PO (10:38)
[2016-12-17] MEDS ORDERED: Z100 PO (10:38)
[2016-12-17] MEDS ORDERED: PRIN5 PO (10:38)
[2016-12-17] MEDS ORDERED: LOP25 PO (10:38)
[2016-12-17] MEDS ORDERED: KLOR-CON 1010 MEQ PO (10:38)
[2016-12-17] MEDS ORDERED: FENESIN IR400 MG PO (10:39)
[2016-12-17] MEDS ORDERED: MULTIVIT/MIN PO (10:39)
[2016-12-17] MEDS ORDERED: ZOL100 PO (10:39)
[2016-12-17] MEDS ORDERED: PRILOSEC OTC20 MG PO (10:39)
[2016-12-17] MEDS ORDERED: ASA5GR PO (10:39)
[2016-12-17] MEDS ORDERED: DILAUDID PAIN PUMP (10:44)
== END 2016-09-04 23:59 | disposition home or self-care (01) ==
LOC: DMU 09:22
PROVIDERS: Internal Medicine Gastroenterology
PROC: 0DJD8ZZ Inspection of Lower Intestinal Tract, Via Natural or Artificial Opening Endoscopic (ICD-10-PCS; principal; 2016-09-04 12:00)
DX: K57.30 Diverticulosis of large intestine without perforation or abscess without bleeding (principal); K64.0 First degree hemorrhoids; I10 Essential (primary) hypertension; G20 Parkinson's disease; G47.33 Obstructive sleep apnea (adult) (pediatric); Z88.1 Allergy status to other antibiotic agents; M19.90 Unspecified osteoarthritis, unspecified site; D68.2 Hereditary deficiency of other clotting factors; R44.3 Hallucinations, unspecified; F41.9 Anxiety disorder, unspecified; K44.9 Diaphragmatic hernia without obstruction or gangrene; M54.16 Radiculopathy, lumbar region; G47.30 Sleep apnea, unspecified; H91.90 Unspecified hearing loss, unspecified ear; H54.7 Unspecified visual loss; I20.9 Angina pectoris, unspecified; E78.00 Pure hypercholesterolemia, unspecified; I49.9 Cardiac arrhythmia, unspecified; H47.20 Unspecified optic atrophy; H33.20 Serous retinal detachment, unspecified eye; Z87.01 Personal history of pneumonia (recurrent); Z90.49 Acquired absence of other specified parts of digestive tract; Z98.890 Other specified postprocedural states; Z98.1 Arthrodesis status; Z98.0 Intestinal bypass and anastomosis status; Z88.5 Allergy status to narcotic agent; Z95.5 Presence of coronary angioplasty implant and graft; Z88.8 Allergy status to other drugs, medicaments and biological substances; Z96.89 Presence of other specified functional implants; Z90.89 Acquired absence of other organs; Z79.899 Other long term (current) drug therapy; Z79.82 Long term (current) use of aspirin

== ENCOUNTER 2016-09-25 09:00 | Emergency (ER) | payer MEDICARE, OTHER ==
[2016-09-25 09:59] LABS: BASOPHILS 0.2 %; BASOPHILS ABSOLUTE 0.02 10/3/uL (0.0-0.16); EOSINOPHILS 0.3 %; EOSINOPHILS ABSOLUTE 0.03 10/3/uL (0.0-0.53); HEMATOCRIT 43.8 % (40.0-51.0); HEMOGLOBIN 14.8 g/dL (13.6-17.8); IMMATURE GRANULOCYTES 0.4 %; IMMATURE GRANULOCYTES ABSOLUTE 0.04 10/3/uL (0.0-0.11); LYMPHOCYTES 5.6 %; LYMPHOCYTES ABSOLUTE 0.63 10/3/uL (0.67-4.30); MEAN CORPUS HGB CONC 33.8 g/dL (32.0-36.0); MEAN CORPUSCULAR VOLUME 94.6 fL (80-100); MEAN PLATELET VOLUME 11.1 fL (9.2-13.0); MONOCYTES 10.6 %; NEUTROPHILS 82.9 %; PLATELET COUNT 129 10/3/uL (150-400); RBC DISTRIBUTION WIDTH 14.3 % (12.0-16.0); RED CELL COUNT 4.63 10/6/uL (4.7-6.1)
[2016-09-25 10:00] LABS: MANUAL DIFF NO %; WHITE BLOOD CELLS 11.3 10/3/uL (4.5-10.5)
[2016-09-25 10:12] LABS: WBC (NOT ORDERED) (RFLEX) 0 (0-5)
[2016-09-25 10:15] LABS: A/G RATIO 0.9 (0.7-1.9); ALBUMIN 3.8 G/DL (3.5-5.0); CALCIUM, SERUM 9.4 MG/DL (8.5-10.4); CHLORIDE, SERUM 104 MMOL/L (96-112); CREATININE 0.75 MG/DL (0.70-1.30); GFR AFRICAN AMERICAN 105 ML/MIN (>=60); GFR NON AFRICAN AMERICAN 91 ML/MIN (>=60); GLOBULIN 4.2 G/DL (2.5-4.1); SGPT(ALT) 48 U/L (5-65); SODIUM, SERUM 139 MMOL/L (135-148)
[2016-09-25 10:18] LABS: ALKALINE PHOSPHATASE 116 U/L (45-117); BUN (BLOOD UREA NITROGEN) 17 MG/DL (6-23); CO2 (CARBON DIOXIDE) 27 MMOL/L (24-34); GLUCOSE, SERUM 120 MG/DL (60-99); SGOT(AST) 59 U/L (5-40); TOTAL BILIRUBIN 0.9 MG/DL (0-1.2)
[2016-09-25 10:19] LABS: POTASSIUM, SERUM 4.6 MMOL/L (3.5-5.3)
[2016-09-25 10:30] LABS: ASCORBIC ACID (UR NOT ORDER) NEG (NEG); BILIRUBIN, URINE NEGATIVE (NEG); ER URINALYSIS TAT 0 Hrs 20 Mins; KETONE, URINE NEGATIVE (NEG); LEUKOCYTE ESTERASE(NOT OR NEG (NEG); NITRITE (URINE) NEG (NEG)
[2016-09-25 10:58] LABS: INTERNATIONAL NORMAL RATI 1.4 UNITS (-); PROTIME (NOT ORD) 16.6 SEC (12.0-14.5)
[2016-12-17] MEDS ORDERED: IMOD PO (10:35)
[2016-12-17] MEDS ORDERED: ELIQUIS 5 MG TAB5 MG PO (10:35)
[2016-12-17] MEDS ORDERED: FOLIC PO (10:36)
[2016-12-17] MEDS ORDERED: DEPAKUDL PO (10:36)
[2016-12-17] MEDS ORDERED: NUPLAZID 17 MG PO (10:37)
[2016-12-17] MEDS ORDERED: L20 PO (10:37)
[2016-12-17] MEDS ORDERED: DIL2TAB PO (10:37)
[2016-12-17] MEDS ORDERED: MIRALAX POWDER1 PKT PO (10:37)
[2016-12-17] MEDS ORDERED: KLOR-CON 1010 MEQ PO (10:38)
[2016-12-17] MEDS ORDERED: Z100 PO (10:38)
[2016-12-17] MEDS ORDERED: METAMUCIL CAN7 OZ PO (10:38)
[2016-12-17] MEDS ORDERED: PRIN5 PO (10:38)
[2016-12-17] MEDS ORDERED: LOP25 PO (10:38)
[2016-12-17] MEDS ORDERED: ZOL100 PO (10:39)
[2016-12-17] MEDS ORDERED: ASA5GR PO (10:39)
[2016-12-17] MEDS ORDERED: PRILOSEC OTC20 MG PO (10:39)
[2016-12-17] MEDS ORDERED: MULTIVIT/MIN PO (10:39)
[2016-12-17] MEDS ORDERED: FENESIN IR400 MG PO (10:39)
[2016-12-17] MEDS ORDERED: DILAUDID PAIN PUMP (10:44)
== END 2016-09-25 13:54 | disposition home or self-care (01) ==
LOC: ER 09:00
PROVIDERS: Emergency Medicine
DX: R10.84 Generalized abdominal pain (principal); R31.9 Hematuria, unspecified; R19.5 Other fecal abnormalities; G47.30 Sleep apnea, unspecified; I11.0 Hypertensive heart disease with heart failure; I50.9 Heart failure, unspecified; F03.90 Unspecified dementia, unspecified severity, without behavioral disturbance, psychotic disturbance, mood disturbance, and anxiety; K21.9 Gastro-esophageal reflux disease without esophagitis; F32.9 Major depressive disorder, single episode, unspecified; I25.10 Atherosclerotic heart disease of native coronary artery without angina pectoris; Z95.5 Presence of coronary angioplasty implant and graft; Z86.718 Personal history of other venous thrombosis and embolism; Z86.711 Personal history of pulmonary embolism; Z85.828 Personal history of other malignant neoplasm of skin; Z87.01 Personal history of pneumonia (recurrent); Z87.442 Personal history of urinary calculi; Z88.1 Allergy status to other antibiotic agents; Z88.8 Allergy status to other drugs, medicaments and biological substances; Z79.899 Other long term (current) drug therapy; Z79.82 Long term (current) use of aspirin
CPT/HCPCS: 36415; 74176; 80053; 81001; 85025; 85610; 85730; 86850; 86900; 86901; 93005; 96374; 99285